=== PATIENT | female | born 2005 | race Caucasian/White ===

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

== ENCOUNTER 2024-10-08 08:42 | Emergency (ER) | payer BC, SELFPAY ==
[2024-10-08 08:45] VITALS: BP 139/80; PULSE 110; TEMP 37.4; O2SAT 95
--- NOTE | 2024-10-08 09:07 | ED_ITS ---
HPI - Abdominal Pain 2 General: Chief Complaint: Abdominal Pain Stated Complaint: rt abd pain Time Seen by Provider: 10/08/24 08:57 History of Present Illness: 18-year-old female presents emergency ro om with right sided abdominal pain began yesterday. Migrated to the right lower quadrant after initially being generalized on the right side. She has had some nausea with episode of vomiting no diarrhea no dysuria urgency or frequency. No previous abdominal surgeries no hematuria. She is not on any regular medications other than Depo-Provera. Associated Symptoms: Reports nausea and vomiting; Denies chills, coffee ground emesis, diarrhea, dysuria, fever(s), hematochezia, hematemesis and melena Related Data Home Medications ?Medication ?Instructions ?Recorded ?Confirmed medroxyprogesterone 150 mg/mL 150 mg IM .Q90D 10/08/24 10/08/24 intramuscular syringe Previous Rx's ?Medication ?Instructions ?Recorded ciprofloxacin HCl 500 mg tablet 500 mg PO BID #14 tabs 10/08/24 Allergies Allergy/AdvReac Type Severity Reaction Status Date / Time No Known Allergies Allergy Verified 02/10/24 11:46 Review of Systems 2 Const: Denies: fever(s) or chills Card: Denies: chest pain Resp: Denies: dyspnea GI: Reports: abdominal pain, nausea and vomiting; Denies: hematemesis, coffee ground emesis, diarrhea, hematochezia or melena : Denies: dysuria, urinary frequency or urinary urgency Musc: Denies: neck pain or back pain Skin/Breast: Denies: rash PFSH ED 2 PFSH: Social History Smoking and tobacco/nicotine status: never used tobacco/nicotine Second hand smoke exposure: Yes Alcohol intake: never Substance/Drug Use: never Adopted: No Physical Exam 2 Const: COMMON NORMALS: no acute distress GENERAL APPEARANCE: cooperative and comfortable ORIENTATION/CONSCIOUSNESS: Yes awake, Yes oriented to person, Yes oriented to place and Yes oriented to time HENMT: COMMON NORMALS: normocephalic, atraumatic and hearing grossly normal bilaterally HEAD & SCALP: normocephalic and atraumatic Resp: COMMON NORMALS: normal respiratory effort, No retractions, No use of accessory muscles and clear to auscultation bilaterally AUSCULTATION: clear to auscultation bilaterally Cardio: COMMON NORMALS: regular rate, regular rhythm and No murmurs present (Cardio) RATE: regular rate RHYTHM: regular rhythm GI: COMMON NORMALS: No hepatosplenomegaly present AUSCULTATION: Yes normoactive bowel sounds PALPATION: Yes Tenderness to palpation present (GI) Details: RLQ, No Guarding due to palpation present (GI) and Yes No hepatosplenomegaly present OTHER: Pain with percussion in right lower quadrant positive Rovsing. Positive rebound Negative Lev's punch Extremity: COMMON NORMALS: normal to inspection, capillary refill normal, no clubbing, cyanosis or edema, no calf tenderness and no pedal edema Neuro: SENSORIUM/ORIENTATION: Yes oriented to person, Yes oriented to place and Yes oriented to time Skin: COMMON NORMALS: no rashes or lesions noted GENERAL SKIN EXAM: no rashes or lesions noted Course 2 Vital Signs: Vital signs: Vital Signs Temperature 99.3 F 10/08/24 08:45 Pulse Rate 110 H 10/08/24 08:45 Blood Pressure 116/79 10/08/24 10:07 Pulse Oximetry 95 10/08/24 08:45 Oxygen Delivery Me thod Room Air 10/08/24 08:45 MDM - Abdominal Pain Medical Decision Making No leukocytosis. The CT shows mild inflammation on the right kidney urine shows signs of cystitis appendix normal discussed with radiology. Patient given liter of fluids here discharged home with Cipro. Is also given a gram of ceftriaxone in the emergency room start Cipro tomorrow follow-up with primary care as needed Medical Records I reviewed the patient's medical records. Lab Data I reviewed the patient's lab results. 10/08/24 09:08 10/08/24 09:08 Labs/Radiology: Radiology Impressions Abdomen/Pelvis CT 10/08/24 09:16 IMPRESSION: 1. Normal appendix. 2. Bilateral striated nephrogram suspicious for pyelonephritis. No hydronephrosis. 3. Low-attenuation upper pole RIGHT kidney measuring 10 mm likely renal cyst. 4. Mild diffuse bladder wall thickening. Recommend correlation for cystitis. 5. 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 This is progressed since 2017. Recommend orthopedic spine consultation. Left- sided defect is new since 2017 with progressed sclerosis involving the RIGHT defect. Grade 1 anterolisthesis is new. Notified David Rodriguez DO at 10/08/2024 10:25 AM. Laboratory Results WBC 10.48 10^3/uL (4.5-13.0) 10/08/24 09:08 RBC 4.37 10^6/uL (3.85-5.65) 10/08/24 09:08 Hgb 13.90 g/dL (12.4-14.8) 10/08/24 09:08 Hct 40.4 % (36-47) 10/08/24 09:08 MCV 92.4 fl (85-98) 10/08/24 09:08 MCH 31.8 pg (27-33) 10/08/24 09:08 MCHC 34.4 g/dL (30-55) 10/08/24 09:08 RDW 12.5 % (12.1-15.1) 10/08/24 09:08 Plt Count 224 10^3/cmm (157-399) 10/08/24 09:08 MPV 9.3 fL (7.4-10.4) 10/08/24 09:08 Neut % (Auto) 78.3 % 10/08/24 09:08 Lymph % (Auto) 9.1 % 10/08/24 09:08 [place] % (Auto) 11.8 % 10/08/24 09:08 Eos % (Auto) 0.1 % 10/08/24 09:08 Baso % (Auto) 0.3 % 10/08/24 09:08 Neut # (Auto) 8.21 10^3/uL (1.8-8.0) H 10/08/24 09:08 Lymph # (Auto) 1.0 10^3/uL (1.5-6.5) L 10/08/24 09:08 [place] # (Auto) 1.2 10^3/uL (0.2-0.9) H 10/08/24 09:08 Eos # (Auto) 0.0 10^3/uL (0.0-0.8) 10/08/24 09:08 Baso # (Auto) 0.0 10^3/uL (0.0-0.1) 10/08/24 09:08 Nucleated RBC % (auto) 0 % 10/08/24 09:08 Nucleated RBCs # 0.0 /100WBC 10/08/24 09:08 Sodium 140 mmol/L (136-145) 10/08/24 09:08 Potassium 3.8 mmol/L (3.5-5.1) 10/08/24 09:08 Chloride 106 mmol/L (98-107) 10/08/24 09:08 Carbon Dioxide 20 mmol/L (22-29) L 10/08/24 09:08 Anion Gap 17.8 (5-19) 10/08/24 09:08 BUN 7 mg/dL (6-20) 10/08/24 09:08 Creatinine 0.6 mg/dL (0.5-0.9) 10/08/24 09:08 GFR Calculation 128.8 mL/min (90-130) 10/08/24 09:08 Glucose 109 mg/dL (65-115) 10/08/24 09:08 Calculated Osmolality 289 mOsm/kg (285-295) 10/08/24 09:08 Calcium 9.4 mg/dL (8.5-10.5) 10/08/24 09:08 Total Bilirubin 0.5 mg/dL (0.15-1.2) 10/08/24 09:08 AST 15 U/L (0-32) 10/08/24 09:08 ALT 13 U/L (0-33) 10/08/24 09:08 Alkaline Phosphatase 69 U/L (35-105) 10/08/24 09:08 Total Protein 7.8 g/dL (6.6-8.7) 10/08/24 09:08 Albumin 4.6 g/dL (3.5-5.2) 10/08/24 09:08 Globulin 3.2 g/dL (1.3-4.6) 10/08/24 09:08 HCG, Qual Negative (Negative) 10/08/24 09:08 Urine Color Yellow (Yellow) 10/08/24 09:04 Urine Appearance Clear (CLEAR) 10/08/24 09:04 Urine pH 6.0 (5-7) 10/08/24 09:04 Ur Specific [place] 1.022 (1.005-1.030) 10/08/24 09:04 Urine Protein 1+ (Negative) A 10/08/24 09:04 Urine Glucose (UA) Negative (Normal) 10/08/24 09:04 Urine Ketones 1+ (Negative) H 10/08/24 09:04 Urine Blood Negative (Negative) 10/08/24 09:04 Urine Nitrate Negative (Negative) 10/08/24 09:04 Urine Bilirubin Negative (Negative) 10/08/24 09:04 Urine Urobilinogen 1.0 mg/dL (Negative) 10/08/24 09:04 Ur Leukocyte Esterase 1+ (Negative) A 10/08/24 09:04 Urine RBC 0-2 /hpf (0-2) 10/08/24 09:04 Urine WBC 21-50 /hpf (0-5) H 10/08/24 09:04 Ur Squamous Epith Cells 0-5 /hpf (0-5) 10/08/24 09:04 Amorphous Sediment Not Reportable 10/08/24 09:04 Urine Bacteria 1+ /hpf (NONE) H 10/08/24 09:04 Hyaline Casts 3.71 /lpf 10/08/24 09:04 All radiology interpretation(s) finalized by discharge Discharge Plan Discharge Patient Disposition: Home Clinical Impression: Pyelonephritis Condition: Stable Prescriptions: New ciprofloxacin HCl 500 mg tablet 500 mg PO BID Qty: 14 0RF No Action medroxyprogesterone 150 mg/mL syringe 150 mg IM .Q90D Discharge Orders: Discharge ED (Routine); Ordered 10/08/24 Ordered By: David Rodriguez Referrals: Noemi Lobo FNP-BC [Primary Care Provider, Pediatrics] Discharge Diet: Usual diet Patient Instructions: Opioid Safety, Pain Management, Patient Portal & Janeth Instructions Activity Restrictions/Additional Instructions: Thank you for choosing [facility] for your healthcare needs today. It is very important that you follow up as instructed or that you return to the Emergency Department should you have concerns or if your condition changes or worsens in any way. Emergency department visits are focused on emergent conditions, in some cases you may require further evaluation on an outpatient basis. You are seen in the emergency room with right side pain CT shows normal appendix your white count is not elevated you do have a mild bladder infection some changes in the CT surrounding your kidneys suggestive that the infection and urinary tract is at the level of the kidneys. You are given a dose of antibiotics here and discharged home with oral antibiotics to start tomorrow. (Please note that included in your discharge packet is information concerning opioid safety and pain management. This information is given to all patients were discharged from the ER regardless of their discharge diagnosis or the medicines they usually take or are prescribed.) Print Language: Maltese Coding Level of Care Code ED Glass Tube Bender for Sandra Yang
[2024-10-08 09:16] LABS: Hematocrit 40.4 % (36-47); Hemoglobin 13.90 g/dL (12.4-14.8); Mean Corpuscular HGB Conc 34.4 g/dL (30-55); Mean Corpuscular Hemoglobin 31.8 pg (27-33); Mean Corpuscular Volume 92.4 fl (85-98); Nucleated Red Blood Cells % 0 %; Platelet Count 224 10^3/cmm (157-399); Red Blood Count 4.37 10^6/uL (3.85-5.65); White Blood Count 10.48 10^3/uL (4.5-13.0)
--- NOTE | 2024-10-08 09:16 | CT_ITS ---
WS: [id number] CT ABDOMEN PELVIS TECHNIQUE: Contrast-enhanced CT of the abdomen and pelvis with coronal and sagittal reformatted images. CLINICAL INFORMATION: Right lower quadrant abd pain COMPARISON: 2017 DLP: 360.[address] scans at [facility] use at least one of these dose optimization techniques: automated exposure control; mA and/or kV adjustment per patient size (includes targeted exams where dose is matched to clinical indication); or iterative reconstruction. FINDINGS: Some images degraded by motion Normal appendix in the RIGHT lower quadrant. No evidence of acute appendicitis. Normal multi follicular ovaries bilaterally. Anteverted uterus. Lung bases are well aerated. Fatty liver. Normal spleen. Normal gallbladder. Normal portal vein and splenic vein. Normal GE junction. Adrenal glands are normal. Bilateral striated nephrograms suspicious for pyelonephritis. Recommend correlation for UTI. No hydronephrosis. Adrenal glands are normal. Small fat- containing umbilical hernia. Mild diffuse bladder wall thickening. Recommend correlation for cystitis. Bladder is partially decompressed. Low-lying cecum in the pelvis with mild RIGHT colon constipation. Bilateral pars defects L5-S1 with grade [address]/CT abdomen pelvis w con* [id number] IMPRESSION: 1. Normal appendix. 2. Bilateral striated nephrogram suspicious for pyelonephritis. No hydronephro sis. 3. Low-attenuation upper pole RIGHT kidney measuring 10 mm likely renal cyst. 4. Mild diffuse bladder wall thickening. Recommend correlation for cystitis. 5. 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 This is progressed since 2017. Recommend orthopedic spine consultation. Left-s ided defect is new since 2017 with progressed sclerosis involving the RIGHT def ect. Grade 1 anterolisthesis is new. Notified David Rodriguez DO at 10/08/2024 10:25 AM.
[2024-10-08 09:19] LABS: Glucose Urine UA Negative (Normal); Nitrate Urine Negative (Negative); Specific Gravity, Urine 1.022 (1.005-1.030)
[2024-10-08 09:21] LABS: Add Urine Microscopic? YES
[2024-10-08 09:30] LABS: HCG, Serum Qual Negative (Negative)
[2024-10-08 09:35] LABS: Alanine Aminotransferase 13 U/L (0-33); Albumin Level 4.6 g/dL (3.5-5.2); Alkaline Phosphatase 69 U/L (35-105); Anion Gap 17.8 (5-19); Aspartate Amino Transferase 15 U/L (0-32); Blood Urea Nitrogen 7 mg/dL (6-20); Calcium 9.4 mg/dL (8.5-10.5); Carbon Dioxide 20 mmol/L (22-29); Chloride 106 mmol/L (98-107); Creatinine Clr Calc Pharmacy 120.1164; Globulin 3.2 g/dL (1.3-4.6); Glucose 109 mg/dL (65-115); Osmolality Calculated 289 mOsm/kg (285-295); Potassium 3.8 mmol/L (3.5-5.1); Sodium 140 mmol/L (136-145); Total Protein 7.8 g/dL (6.6-8.7)
[2024-10-08 09:47] VITALS: BP 126/72
[2024-10-08] MEDS: iohexol 350 mg/mL 500 mL Btl (per mL) IV (09:48)
[2024-10-08 10:07] VITALS: BP 116/79
[2024-10-08] MEDS: cefTRIAXone 1,000 mg SDV 1000 MG IVP (10:36)
[2024-10-08 11:22] VITALS: BP 132/84; PULSE 100; O2SAT 99
== END 2024-10-08 11:22 | disposition home or self-care (01) ==
PROVIDERS: Emergency Provider Family Medicine; PCP Nurse Practitioner
DX: N12 Tubulo-interstitial nephritis, not specified as acute or chronic (principal)
CPT/HCPCS: 36415; 74177; 80053; 81001; 84703; 85025; 87077; 87086; 87186; 96374; 96375; 99285; J0696; J1885; J7030

== ENCOUNTER 2024-10-15 12:47 | Outpatient (CLI) | payer BC, SELFPAY ==
[2024-10-15 13:22] LABS: Hematocrit 39.0 % (36-47); Hemoglobin 13.10 g/dL (12.4-14.8); Mean Corpuscular HGB Conc 33.6 g/dL (30-55); Mean Corpuscular Hemoglobin 31.0 pg (27-33); Mean Corpuscular Volume 92.4 fl (85-98); Nucleated Red Blood Cells % 0 %; Platelet Count 331 10^3/cmm (157-399); Red Blood Count 4.22 10^6/uL (3.85-5.65); White Blood Count 6.73 10^3/uL (4.5-13.0)
[2024-10-15 13:48] LABS: Calcium 9.4 mg/dL (8.5-10.5)
[2024-10-15 13:56] LABS: Alanine Aminotransferase 12 U/L (0-33); Albumin Level 4.5 g/dL (3.5-5.2); Alkaline Phosphatase 65 U/L (35-105); Anion Gap 16.7 (5-19); Aspartate Amino Transferase 16 U/L (0-32); Blood Urea Nitrogen 11 mg/dL (6-20); Calcium 9.3 mg/dL (8.5-10.5); Carbon Dioxide 22 mmol/L (22-29); Chloride 106 mmol/L (98-107); Cholesterol 120 mg/dL (0-200); Globulin 3.0 g/dL (1.3-4.6); Glucose 99 mg/dL (65-115); HDL Cholesterol 48 mg/dL (60-100); Osmolality Calculated 291 mOsm/kg (285-295); Potassium 3.7 mmol/L (3.5-5.1); Sodium 141 mmol/L (136-145); Thyroid Stimulating Hormone 0.69 uIU/mL (0.27-4.20); Total Protein 7.5 g/dL (6.6-8.7); Triglycerides 42 mg/dL (0-150)
[2024-10-15 14:54] LABS: Free T4 Free Thyroxine 1.14 ng/dL (0.93-1.60)
== END 2024-10-15 12:48 | disposition home or self-care (01) ==
PROVIDERS: PCP Nurse Practitioner; Visit Provider Nurse Practitioner
DX: Z00.00 Encounter for general adult medical examination without abnormal findings (principal); M43.00 Spondylolysis, site unspecified
CPT/HCPCS: 36415; 80053; 80061; 82306; 82310; 83970; 84439; 84443; 85025

== ENCOUNTER → 2024-10-28 12:56 | Outpatient (BNVA) | payer BC, SELFPAY | PROVIDERS: PCP Nurse Practitioner; Visit Provider Orthopaedic Surgery | DX: M43.06 Spondylolysis, lumbar region (principal) | CPT/HCPCS: 72110 ==

== ENCOUNTER 2024-11-11 07:31 | Outpatient (RCR) | payer BC, SELFPAY | END 2024-12-10 23:59 | disposition home or self-care (01) | LOC: SPT 07:31 | PROVIDERS: Visit Provider Orthopaedic Surgery | DX: M54.9 Dorsalgia, unspecified (principal) | CPT/HCPCS: 97110; 97161 ==